=== PATIENT | male | born 1985 | race Caucasian/White ===

== ENCOUNTER 2025-06-06 10:53 | Emergency (ER) | payer OTHER ==
[2025-06-06 11:12] LABS: BASOPHILS ABSOLUTE AUTO 0.04 10^3/uL (0.00-0.10); BASOPHILS PERCENT AUTO 0.4 % (0.0-1.0); EOSINOPHILS ABSOLUTE AUTO 0.08 10^3/uL (0.10-0.30); EOSINOPHILS PERCENT AUTO 0.7 % (1.0-3.0); IMMATURE GRAN ABSOLUTE AUTO 0.09 10^3/uL (0.00-0.04); IMMATURE GRAN PERCENT AUTO 0.8 % (0.0-0.4); LYMPHOCYTES ABSOLUTE AUTO 3.83 10^3/uL (1.00-4.00); LYMPHOCYTES PERCENT AUTO 35.2 % (20.0-40.0); MEAN PLATELET VOLUME 9.9 fL (7.4-10.4); MONOCYTES ABSOLUTE AUTO 0.89 10^3/uL (0.10-0.80); MONOCYTES PERCENT AUTO 8.2 % (2.0-8.0); NEUTROPHILS ABSOLUTE AUTO 5.94 10^3/uL (2.50-7.00); NEUTROPHILS PERCENT AUTO 54.7 % (50.0-70.0); PLATELET COUNT,PLT 234 10^3/uL (150-400); RED BLOOD CELL COUNT 5.11 10^6/uL (4.50-6.00); RED CELL DISTRIBUTION WIDTH 13.5 % (11.5-14.5); WHITE BLOOD CELL COUNT,WBC 10.87 10^3/uL (5.00-10.00)
[2025-06-06 11:26] LABS: ALANINE AMINOTRANSFERASE,ALT 27 U/L (14-63); ASPARTATE AMNIOTRANSFERASE,AST 20 U/L (15-37); BILIRUBIN TOTAL 0.8 mg/dL (0.2-1.0); BLOOD UREA NITROGEN,BUN 13 mg/dL (7-18); CARBON DIOXIDE,CO2 20.7 mmol/L (21.0-32.0); CHLORIDE,CL 104 mmol/L (98-107); CREATINE KINASE,CK 205 U/L (26-276); CREATININE 0.84 mg/dL (0.51-1.17); ESTIMATED GFR 114 mL/min (>=60); GLUCOSE RANDOM 149 mg/dL (70-140); POTASSIUM,K 3.0 mmol/L (3.5-5.1); PROTEIN TOTAL,TP 7.0 g/dL (6.4-8.2); SODIUM,NA 139 mmol/L (136-145)
[2025-06-06] MEDS: Diphtheria,Pertussis(Acell),Tetanus Vaccine 0.5 ML Syringe IM ONE (11:29)
[2025-06-06] MEDS ORDERED: Naloxone 0.4 MG/ML SDV IVPUSH PRN (11:31)
[2025-06-06] MEDS: Ondansetron 4 MG/2 ML SDV IVPUSH ONE ×2 (11:35→11:36)
[2025-06-06] MEDS: Ondansetron 4 MG/2 ML SDV ONE (12:01)
== END 2025-06-06 11:58 ==
LOC: KA.ED 11:01
DX: S98.922A Partial traumatic amputation of left foot, level unspecified, initial encounter (principal); S98.921A Partial traumatic amputation of right foot, level unspecified, initial encounter; R11.2 Nausea with vomiting, unspecified; Z23 Encounter for immunization; W20.8XXA Other cause of strike by thrown, projected or falling object, initial encounter; Y92.89 Other specified places as the place of occurrence of the external cause; Y99.0 Civilian activity done for income or pay
CPT/HCPCS: 36415; 72170; 73600-50; 80053; 82550; 83605; 85025; 90471; 90715; 96374; 96375; 99285-25; J0690; J1171; J2405; J7030; Q3014